=== PATIENT | male | born 1945 | race Caucasian/White ===

== ENCOUNTER 2018-08-26 08:57 | Observation (INO) | payer MEDICARE ==
--- NOTE | 2018-08-26 09:39 | ED ---
HPI Chest Pain - HPI Summary HPI Summary: This patient is a 77 year old M presenting to [facility] with a chief complaint of CP that began yesterday. The patient has been in the hospital on the 4th floor with his who is admitted for her pancreatic cancer. Last night he went home after staying here for a couple days without his medication. He took his meds at home and was driving back when he had chest tightness while driving rated 3/10 and pulled over. He was still having chest discomfort when he returned and was up visiting his . This morning he had another episode of cp and at this point he decided to walk down to the ED. Currently he is having mild left sided neck and shoulder pain. The patient rates the pain 1/10 in severity. The pain is worse with activity and resolves with rest. Patient reports SOB and diaphoresis with mild exertion. Patient denies n/v, LE edema, ABD pain, and GERD. He was seen at the [facility] last week and was told he looked good. He has had a stress test in the last ten years and has not taken any medication since yesterday afternoon when he was home. NKDA. He denies hx of CHF. Pt had an MN in 1988 and has 2 stents placed - History of Current Complaint Chief Complaint: EDChestPainROMI Time Seen by Provider: 08/26/18 09:27 Hx Obtained From: Patient Onset/Duration: Still Present Timing: Constant Initial Severity: Moderate Current Severity: Mild Pain Intensity: 1 Pain Scale Used: 0-10 Numeric Chest Pain Location: Mid Sternal Chest Pain Radiates: Yes Chest Pain Radiates To:: Shoulder, Neck Associated Signs and Symptoms: Positive: Other: - SOB - Allergy/Home Medications Allergies/Adverse Reactions: Allergies Allergy/AdvReac Type Severity Reaction Status Date / Time No Known Allergies Allergy Verified 08/26/18 09:08 PMH/Surg Hx/FS Hx/Imm Hx Endocrine/Hematology History: Reports: Hx Diabetes Cardiovascular History: Reports: Hx Hypertension, Hx Myocardial Infarction Sensory History: Reports: Hx Contacts or Glasses Opthamlomology History: Reports: Hx Contacts or Glasses - Cancer History Cancer Type, Location and Year: PROSTATE - Surgical History Surgery Procedure, Year, and Place: LAD STENT SP MN. SCHRAPNEL IN SPINE AND SHOULDER. MANSI. APPY. TONSILLECTOMY. FACIAL SURGERY X 2. NASAL PASSAGES Infectious Disease History: No Infectious Disease History: Denies: Traveled Outside the [place] in Last 30 Days - Family History Known Family History: Positive: Hypertension - Social History Alcohol Use: None Substance Use Type: Reports: None Hx Tobacco Use: Yes Smoking Status (MU): Former Smoker Review of Systems Positive: Skin Diaphoresis - see hpi Positive: Chest Pain Positive: Shortness Of Breath - see hpi Gastrointestinal: Negative - gerd Negative: Abdominal Pain, Vomiting, Nausea Negative: Edema All Other Systems Reviewed And Are Negative: Yes Physical Exam - Summary Physical Exam Summary: General: well-appearing, no pain distress Skin: warm, color reflects adequate perfusion, dry Head: normal Eyes: EOMI, MELVINA ENT: normal Neck: supple, nontender Respiratory: CTA, breath sounds present Cardiovascular: RRR Abdomen: soft, nontender Bowel: present Musculoskeletal: normal, strength/ROM intact Neurological: sensory/motor intact, A&O x3 Psychological: affect/mood appropriate Triage Information Reviewed: Yes Vital Signs On Initial Exam: Initial Vitals Temp Pulse Resp BP Pulse Ox 98.3 F 87 19 122/75 96 08/26/18 09:05 08/26/18 09:05 08/26/18 09:05 08/26/18 09:05 08/26/18 09:05 Vital Signs Reviewed: Yes Diagnostics - Vital Signs Vital Signs Temp Pulse Resp BP Pulse Ox 08/26/18 09:05 98.3 F 87 19 122/75 96 - Laboratory Result Diagrams: 08/26/18 09:50 08/26/18 09:50 Lab Statement: Any lab studies that have been ordered have been reviewed, and results considered in the medical decision making process. - Radiology CXR Radiology Interpretation Completed By: Radiologist Summary of Radiographic Findings: no active cardiopulmonary disease is noted. ED physician has reviewed this radiology report. - EKG 0917 Cardiac Rate: NL EKG Rhythm: Sinus Rhythm - at [address] Segment: Normal Ectopy: None Chest Pain Course/Dx - Course Course Of Treatment: Admit hospitalist stable - Diagnoses Provider Diagnoses: Chest pain - Provider Notifications Discussed Care Of Patient With: Sonya Barker Time Discussed With Above Provider: 10:30 Instructed by Provider To: Admit As Inpatient Discharge - Sign-Out/Discharge Documenting (check all that apply): Patient Departure - admitted - Discharge Plan Condition: Stable Disposition: ADMITTED TO [facility] Referrals: Madhav Callaway MD [Primary Care Provider] - - Billing Disposition and Condition Condition: STABLE Disposition: Admitted to [facility] - Attestation Statements Document Initiated by Mary: Yes Documenting Scribe: Burak Bravo Provider For Whom Mary is Documenting (Include Credential): Edmund Barrios MD Scribe Attestation: IBurak , scribed for Edmund Barrios MD on 08/26/18 at 1129. Scribe Documentation Reviewed: Yes Provider Attestation: The documentation as recorded by the Burak edouard accurately reflects the service I personally performed and the decisions made by me, Edmund Barrios MD Status of Scribe Document: Viewed
[2018-08-26] MEDS ORDERED: Aspirin 81 mg CHEW TAB* 81 MG TAB.CHEW PO ONE (09:43)
[2018-08-26] MEDS ORDERED: Nitroglycerin TAB 0.4 MG* 0.4 MG TAB SL PRN (09:44)
[2018-08-26] MEDS ORDERED: NS 0.9% 1000 ML* 1,000 ML IV SCH (09:45)
[2018-08-26 10:07] LABS: ABS Basophils 0 10^3/ul (0-0.2); ABS Eosinophils 0.2 10^3/ul (0-0.6); ABS Lymphocytes 1.6 10^3/ul (1.0-4.8); ABS Monocytes 0.7 10^3/ul (0-0.8); ABS Neutrophils 3.3 10^3/ul (1.5-7.7); ABS Nucleated RBC 0 10^3/ul; Eosinophil % 2.7 %; Hematocrit 39 % (42-52); Hemoglobin 13.3 g/dl (14.0-18.0); Lymphocyte % 28.1 %; Mean Corpuscular HGB Conc 35 g/dl (31-36); Mean Corpuscular Hemoglobin 32 pg (27-31); Mean Corpuscular Volume 92 fL (80-94); Mean Platelet Volume 8.3 fL (7.4-10.4); Nucleated Red Blood Cells % 0.1; Platelet Count 177 10^3/ul (150-450); Red Blood Count 4.19 10^6/ul (4.00-5.40); Red Cell Distribution Width 14 % (10.5-15); White Blood Count 5.7 10^3/ul (3.5-10.8)
[2018-08-26 10:14] LABS: Activated Partial Thrombo Time 30.6 seconds (26.0-36.3); INR 0.89 (0.77-1.02)
[2018-08-26 10:24] LABS: Albumin 4.3 g/dL (3.2-5.2); BUN/Creatinine Ratio 12.8 (8-20); Calcium 9.7 mg/dL (8.6-10.3); EGFR Non-African American 78.9 (>60); Globulin 2.2 g/dL (2-4); Magnesium 1.4 mg/dL (1.9-2.7); Potassium 3.9 mmol/L (3.5-5.0); Total Bilirubin 0.5 mg/dL (0.2-1.0); Total Protein 6.5 g/dL (6.4-8.9)
[2018-08-26] MEDS ORDERED: Magnesium Sulfate 2 GM IV* 2 GM/50 ML BAG IVPB ONE ×2 (10:28→12:15)
[2018-08-26] MEDS ORDERED: Magnesium Hydroxide LIQ* 30 ML UDC PO PRN (12:01)
[2018-08-26] MEDS ORDERED: Acetaminophen TAB* 325 MG PO PRN (12:01)
[2018-08-26] MEDS ORDERED: Docusate CAP* 100 MG PO PRN (12:01)
[2018-08-26] MEDS ORDERED: Fluticasone NASAL SPRAY 50MCG* 16 gm SPRAY BTL BOTH NARES PRN (12:10)
[2018-08-26] MEDS ORDERED: Dextrose 50% Syringe 50 ML* 25 GM/50 ML SYRINGE IV PUSH PRN (13:04)
[2018-08-26] MEDS: Heparin VIAL(*) 5000 UNITS/ML VIAL (FIVE THOUSAND) SUBCUT SCH ×2 (13:27→20:49)
[2018-08-26] MEDS: Metoprolol Succinate XL TAB* 25 MG PO SCH (13:27)
[2018-08-26] MEDS: Tamsulosin CAP* 0.4 MG PO SCH (13:27)
--- NOTE | 2018-08-26 15:17 | HP ---
AMENDED REPORT NOW INCLUDES DESIGNATED COSIGNER CC: Dr. Callaway; Dr. Domínguez * HISTORY AND PHYSICAL: DATE OF ADMISSION: 08/26/18 PROVIDER: Maren Rizo NP PRIMARY CARE PROVIDER: Dr. Callaway. CARDIOLOGY PROVIDER: Dr. Domínguez. ATTENDING PHYSICIAN: Dr. Barker * (dictated by Maren Rizo NP). CHIEF COMPLAINT: Chest pain. HISTORY OF PRESENT ILLNESS: Mr. Carlin is a 72-year-old male with a past medical history significant for coronary artery disease, NH in 1988, and 2 stents to the LAD as well as hypertension and diabetes, who experienced sudden onset of substernal chest pain on Sunday while walking in the parking lot. It did resolve with rest. At that time, he did not experience shortness of breath or diaphoresis. He had another episode of similar chest pain later that day while walking in the hallway of this hospital to visit his that again resolved with rest. He had another similar incident yesterday as well as an episode of his heart racing overnight and he decided to come into the ED for further workup. Also of note, the patient has been missed his daily medications since his got admitted to the hospital on . Upon arrival in the ED, the patient's vital signs were stable. His initial 2 troponins were negative and his initial EKG showed no evidence of acute ischemia or infarction. At the time of my exam, the patient denied any chest pain, shortness of breath, or diaphoresis. He also denied any headache, dizziness, nausea, vomiting, diarrhea, abdominal pain, or numbness or tingling in his lower extremities. He denied orthopnea, however, does endorse that he has been getting more short of breath with exertion and sometimes feels his heart is racing with exertion as well. He has no lower extremity edema and denies history of CHF. Also of note, the patient has lost about 30 pounds since December when his was diagnosed with cancer and had increased stress related to that lately and since her admission last week. The hospitalist team was asked to admit this patient for further workup of his chest pain. The patient will undergo a stress test on Sunday morning. PAST MEDICAL HISTORY: Coronary artery disease, NH, status post 2 stents to the LAD; diabetes; BECCA; history of prostate cancer. PAST SURGICAL HISTORY: The patient had some shrapnel in his spine and shoulder removed in the 60s. He has had a cholecystectomy, appendectomy, tonsillectomy, and facial surgery x2. HOME MEDICATIONS: 1. Metformin 500 mg p.o. q.a.m. and 1000 mg q.p.m. 2. Viagra 100 mg p.o. daily p.r.n., which the patient reports not having used. 3. Aspirin 81 mg p.o. b.i.d. 4. Katie 180 mg p.o. daily. 5. Vitamin D 2000 units p.o. daily. 6. Multivitamin 2 tabs p.o. daily. 7. Metoprolol succinate 25 mg p.o. daily. 8. Methylphenidate extended release 40 mg p.o. daily. 9. Lisinopril 40 mg p.o. daily. 10. Flonase 1 spray both nares b.i.d. p.r.n. 11. Flomax 0.4 mg p.o. daily. 12. Crestor 40 mg p.o. daily. 13. Nitroglycerin tabs 0.3 mg sublingual q.5 minutes p.r.n. 14. Niacin 1000 mg p.o. at bedtime. 15. Wellbutrin 300 mg p.o. daily. 16. Loratadine 10 mg p.o. daily. ALLERGIES: The patient has no known allergies. FAMILY HISTORY: The patient does have a family history of coronary artery disease and an abdominal aneurysm in his father. His mother has a history of lung cancer. There is no history of diabetes in his family. SOCIAL HISTORY: The patient is a former smoker, but quit in 1981. The patient denies alcohol use. The patient would like to be full code and his medical decision maker is his , Bina. REVIEW OF SYSTEMS: I performed a 14-point review of systems. All the pertinent positives and negatives are mentioned in the history of present illness. The remaining review of systems are negative. PHYSICAL EXAMINATION GENERAL APPEARANCE: The patient is alert, pleasant, and appears to be in no acute distress. VITAL SIGNS: Temperature 98.9, heart rate 87, respiratory rate 16, O2 sat 96% on room air, blood pressure 143/86. HEENT: Normocephalic, atraumatic. Pupils are equal, round, and reactive to light and accommodation. EOMs are intact. NECK: Supple. No lymphadenopathy noted. No JVD appreciated. RESPIRATORY: No accessory muscle use and the lungs are clear to auscultation. Normal work of breathing. CARDIAC: Regular rate and rhythm. S1 and S2 present. No murmurs, rubs, or gallops heard. ABDOMEN: Soft, nontender, nondistended. There are bowel sounds x4. EXTREMITIES: No lower extremity edema. DP and PT pulses are 2+ and symmetric. MUSCULOSKELETAL: There is no clubbing or cyanosis noted. The patient exhibited 5/5 strength in all 4 extremities. NEUROLOGIC: The patient is alert and oriented x3. PSYCHIATRIC: The patient is calm and cooperative. SKIN: There are no rashes or abnormalities seen. DIAGNOSTIC STUDIES/LAB DATA: White blood cells 5.7, RBC 4.19, hemoglobin 13.3, hematocrit 39, MCV 92, MCH 32, MCHC 35, RDW 14, platelet count 177, MPV 8.3. INR 0.89, PTT 30.6, D-dimer less than 200. Sodium 140, potassium 3.9, chloride 107, carbon dioxide 23, anion gap 10, BUN 12, creatinine 0.94, BUN-creatinine ratio 12.8, glucose 116, lactic acid 1.1, calcium 9.7, magnesium 1.4. Total bili 0.5, AST 24, ALT 20, alk phos 64. Total creatine kinase 94, CK-MB 2.4, troponin 0.01 x2, BNP 38. Total protein 6.5, albumin 4.3, globulin 2.2, albumin -globulin ratio 2. Diagnostics: Chest x-ray with no active cardiopulmonary disease noted. EKG with normal sinus rhythm with rate in the 80s, Q-waves in V1 and V2 representing his old NH. No evidence of ST elevation or T-wave changes. ASSESSMENT: Mr. Carlin is a 72-year-old male with a past medical history significant for coronary artery disease and myocardial infarction, who presented to the ED with episodic substernal chest pain, worse with exertion and resolved with rest, and will be admitted to the hospitalist service for further workup of his chest pain. PLAN: 1. Chest pain in the setting of known coronary artery disease and history of NH . The patient will be admitted to the hospitalist service and monitored on telemetry. His initial 2 troponins and EKGs were negative; however, he will have an additional troponin and EKG. The patient is not currently experiencing any chest pain. He did receive aspirin in the ED. I will continue his home aspirin 81 mg p.o. b.i.d. I will also continue his home metoprolol 25 mg p.o. daily as well as his Crestor. I will order an echo as well as a stress test to be done on Sunday morning. 2. Hypertension. The patient did have systolic blood pressure in the 140s in the ED. I will reorder his home lisinopril. 3. Diabetes. I will hold the patient's metformin and start fingersticks and a lispro sliding scale. 4. BPH. I will continue the patient's Flomax. 5. Depression. I will continue the patient's Wellbutrin. 6. Hypomagnesemia. The patient had a mag of 1.4 in the ED. He received 2 g of mag in the ED and I will give him an additional 2 g and recheck tomorrow. 7. Diet: The patient should have a heart healthy and carb controlled diet. 8. DVT prophylaxis: The patient will have heparin subcu. 9. Code status: The patient is a full code. 10. Disposition: Observation. Anticipate discharge to home when medically stable. TIME SPENT: Time spent for this admission was 60 minutes and 35 minutes were spent with the patient discussing medications, past medical history, and events leading up to his arrival today and performing a physical exam. The case has been reviewed with my attending, Dr. Barker, who agrees with the plan of care. MAREN RIZO, PILAR [id number]/CPS #: [id number] RAYNA
--- NOTE | 2018-08-26 15:44 | ECHO ---
Patient: KEMAR EGAN [facility] Rec#: [id number] : 1945 Date: 08/26/2018 Age: 72y Height: 177.8 cm / 70.0 in Weight: 109.1 kg / 240.5 lbs Sex: M BSA: 2.26 Room#: [facility] Admit Date#: 08/26/2018 Type: Inpatient Referring: PARMINDER RIZO Reading: Rai Deras MD Rehab Assistant: Christine Boles RDCS CC: Madhav Callaway MD Transthoracic Echocardiogram Indication: Chest pain BP: 143/86 HR: 81 Rhythm: NSR Findings History: CAD with OH, stents, HTN, DM, former smoker. Technical Comments: The study quality is fair. Completed at 1415. Left Ventricle: The left ventricular chamber size is normal. There is no left ventricular hypertrophy. There is a focal wall motion abnormality present. There is mildly decreased left ventricular systolic function. The estimated ejection fraction is 40-45%. Abnormal left ventricular diastolic function is observed. Abnormal left ventricular diastolic filling is observed, consistent with impaired relaxation. The mid anteroseptal, and apical lateral wall segments are hypokinetic (score 2). The apical septal, and apical anterior wall segments are akinetic (score 3). Overall wallmotion score index is 1.38 Left Atrium: The left atrium is slightly dilated. Right Ventricle: Moderator Band present. The right ventricular cavity size is normal. The right ventricular global systolic function is normal. Right Atrium: The right atrial cavity size is normal. Aortic Valve: The aortic valve is trileaflet. The aortic valve leaflets are mildly thickened. There is evidence of aortic sclerosis without stenosis. There is no evidence of aortic regurgitation. There is no evidence of aortic stenosis. Mitral Valve: The mitral valve leaflets are mildly thickened. There is trace to mild mitral regurgitation. There is no evidence of mitral stenosis. Tricuspid Valve: The tricuspid valve leaflets are normal. There is trace to mild tricuspid regurgitation. The right ventricular systolic pressure is estimated at 26 mmHg. No pulmonary hypertension is noted. There is no tricuspid stenosis. Pulmonic Valve: The pulmonic valve appears normal. There is a trace pulmonic regurgitation. There is no pulmonic stenosis. Pericardium: There is no significant pericardial effusion. A pericardial fat pad is visualized. Aorta: There is no dilatation of the ascending aorta. There is no dilatation of the aortic arch. There is mild dilatation of the aortic root. Pulmonary Artery: The main pulmonary artery appears normal. Venous: The inferior vena cava appears normal in size. There is a greater than 50% respiratory change in the inferior vena cava dimension. Conclusions There is a focal wall motion abnormality present. There is mildly decreased left ventricular systolic function. The estimated ejection fraction is 40-45%. Abnormal left ventricular diastolic filling is observed, consistent with impaired relaxation. The left atrium is slightly dilated. The aortic valve leaflets are mildly thickened. There is trace to mild mitral regurgitation. There is trace to mild tricuspid regurgitation. There is mild dilatation of the aortic root. Similar to 2011. Measurements Name Value Normal Range RVIDd (AP) 2D 2.6 cm (0.9 - 2.6) RVDdMajor (2D) 3.8 cm (2.2 - 4.4) RAd ISD 4CH 4.8 cm (3.4 - 4.9) RA (A4C)W 4.3 cm (2.9 - 4.6) IVSd (2D) 0.9 cm (0.6 - 1) LVPWd (2D) 1 cm (0.6 - 1) LVIDd (2D) 4.6 cm (3.6 - 5.4) LVIDs (2D) 4 cm - LV FS (2D) 15 % (25 - 45) Aortic Annulus 1.9 cm (1.4 - 2.6) Ao root diameter (2D) 3.8 cm (2.1 - 3.5) Ascending Ao 3.4 cm (2.1 - 3.4) Aortic arch 2.3 cm (1.8 - 3.4) LA dimension (AP) 2D 3.4 cm (2.3 - 3.8) LAd ISD 4CH 5.3 cm (2.9 - 5.3) LA ISD 4CH W 4.7 cm (2.5 - 4.5) Name Value Normal Range LA ESV BP (A/L) index 29 ml/m2 - Name Value Normal Range MV E-wave Vmax 0.7 m/sec - MV deceleration time 162 msec - MV A-wave Vmax 1.2 m/sec - MV E:A ratio 0.6 ratio - LV septal e' Vmax 0.07 m/sec - LV lateral e' Vmax 0.07 m/sec - LV E:e' septal ratio 10 ratio - LV E:e' lateral ratio 10 ratio - Name Value Normal Range AV Vmax 1.5 m/sec - AV VTI 30.6 cm - AV peak gradient 9 mmHg - AV mean gradient 4 mmHg - LVOT Vmax 1 m/sec - LVOT VTI 21 cm - LVOT peak gradient 4 mmHg - LVOT mean gradient 2 mmHg - KHARI Vmax 0.6 m/sec - Name Value Normal Range TR Vmax 2.4 m/sec - TR peak gradient 23 mmHg - RAP 3 mmHg - RVSP 26 mmHg - IVC diameter 2.05 cm - Name Value Normal Range PV Vmax 1.1 m/sec - PV peak gradient 5 mmHg - Wallmotion BAS Normal BA Normal BAL Normal JOSÉ Normal BI Normal BIS Normal MAS Hypokinetic MA Normal MAL Normal MIL Normal OH Normal MIS Normal Akinetic AA Akinetic AL Hypokinetic AI Normal APEX Dyskinetic
[2018-08-26] MEDS: Insulin LISPRO* 1 UNITS UNIT SUBCUT SCH (17:34)
[2018-08-26] MEDS: Aspirin EC TAB* 81 MG TAB.EC PO SCH (20:49)
[2018-08-27] MEDS: Nitroglycerin TAB 0.4 MG* 0.4 MG TAB SL PRN ×2 (00:17→00:27)
[2018-08-27] MEDS ORDERED: Aspirin EC TAB* 325 MG PO ONE (00:35)
[2018-08-27] MEDS ORDERED: Aspirin EC TAB* 325 MG ONE (00:37)
[2018-08-27] MEDS ORDERED: Nitroglycerin 2% OINT* 1 GM PAK ONE (00:37)
[2018-08-27] MEDS: Nitroglycerin 2% OINT* 1 GM PAK TOPICAL SCH ×2 (01:11→07:42)
[2018-08-27] MEDS: Heparin VIAL(*) 5000 UNITS/ML VIAL (FIVE THOUSAND) SUBCUT SCH ×3 (05:37→22:12)
[2018-08-27 05:44] LABS: ABS Basophils 0.1 10^3/ul (0-0.2); ABS Eosinophils 0.2 10^3/ul (0-0.6); ABS Lymphocytes 1.9 10^3/ul (1.0-4.8); ABS Monocytes 0.6 10^3/ul (0-0.8); ABS Nucleated RBC 0 10^3/ul; Eosinophil % 3.5 %; Hematocrit 37 % (42-52); Hemoglobin 12.8 g/dl (14.0-18.0); Lymphocyte % 32.6 %; Mean Corpuscular HGB Conc 34 g/dl (31-36); Mean Corpuscular Hemoglobin 32 pg (27-31); Mean Corpuscular Volume 92 fL (80-94); Mean Platelet Volume 8.3 fL (7.4-10.4); Nucleated Red Blood Cells % 0; Platelet Count 172 10^3/ul (150-450); Red Blood Count 4.04 10^6/ul (4.00-5.40); Red Cell Distribution Width 14 % (10.5-15); White Blood Count 5.7 10^3/ul (3.5-10.8)
[2018-08-27 06:05] LABS: BUN/Creatinine Ratio 12.3 (8-20); Calcium 9.4 mg/dL (8.6-10.3); EGFR Non-African American 63.1 (>60); Potassium 3.8 mmol/L (3.5-5.0)
[2018-08-27] MEDS: Aspirin EC TAB* 81 MG TAB.EC PO SCH ×2 (07:39→20:16)
[2018-08-27] MEDS: Insulin LISPRO* 1 UNITS UNIT SUBCUT SCH ×3 (07:49→17:10)
--- NOTE | 2018-08-27 08:51 | PN ---
Hospitalist Progress Note Date of Service: 08/27/18 called to bedside to eval chest pain. pt says he has chest pain dull type on the anterior chest. got two doses of sl nitro ---> subsided from 5-02/10 to 3-. nitro paste 0.5 inch applied and pt was seen half an hour afterwards ---> still has pain 11/10----> ekg did not reveal any acute change and trop was neg ---> informed pt reg this and asa 325 was given ( changed his asa from 81 mg daily to 325 mg but next dose will be given 08/28. pt will go for stress test tmr )
[2018-08-27] MEDS: Atorvastatin* 80 MG TAB PO SCH (09:06)
[2018-08-27] MEDS: Lisinopril TAB* 10 MG PO SCH (09:06)
[2018-08-27] MEDS: Cholecalciferol TAB* 1000 UNITS PO SCH (09:06)
[2018-08-27] MEDS: Tamsulosin CAP* 0.4 MG PO SCH (09:06)
[2018-08-27] MEDS: Metoprolol Succinate XL TAB* 25 MG PO SCH (09:06)
[2018-08-27] MEDS: BuPROPion XL* 300 MG TAB.XL PO SCH (09:06)
--- NOTE | 2018-08-27 12:14 | PN ---
Subjective Date of Service: 08/27/18 Interval History: Occ mild chest pain or neck pain. Patient not sure if it is cardiac. No cough , SOB. Objective Active Medications: Acetaminophen (Tylenol Tab*) 650 mg PO Q4H PRN PRN Reason: FEVER/PAIN Aspirin (Aspirin Ec Tab*) 81 mg PO BID [facility] Last Admin: 08/27/18 07:39 Dose: Not Given Aspirin (Ecotrin Ec Tab*) 325 mg PO DAILY [facility] Atorvastatin Calcium (Lipitor*) 80 mg PO DAILY [facility] Last Admin: 08/27/18 09:06 Dose: 80 mg Bupropion HCl (Bupropion Xl*) 300 mg PO DAILY [facility] Last Admin: 08/27/18 09:06 Dose: 300 mg Cholecalciferol (Vitamin D Tab*) 2,000 units PO DAILY [facility] Last Admin: 08/27/18 09:06 Dose: 2,000 units Dextrose (D50w Syringe 50 Ml*) 12.5 gm IV PUSH .FOR FS < 60 - SS PRN PRN Reason: FS < 60 Docusate Sodium (Colace Cap*) 100 mg PO BID PRN PRN Reason: CONSTIPATION Fluticasone Propionate (Flonase Nasal [place] 50mcg*) 1 spray BOTH NARES BID PRN PRN Reason: CONGESTION Heparin Sodium (Porcine) (Heparin Vial(*)) 5,000 units SUBCUT Q8HR [facility] Last Admin: 08/27/18 05:37 Dose: 5,000 units Insulin Human Lispro (Humalog*) 0 units SUBCUT AC [facility]; Protocol Last Admin: 08/27/18 12:07 Dose: 1 units Lisinopril (Prinivil Tab*) 40 mg PO DAILY [facility] Last Admin: 08/27/18 09:06 Dose: 40 mg Magnesium Hydroxide (Milk Of Magnesia Liq*) 30 ml PO Q4H PRN PRN Reason: CONSTIPATION Metoprolol Succinate (Toprol Xl Tab*) 25 mg PO DAILY [facility] Last Admin: 08/27/18 09:06 Dose: 25 mg Nitroglycerin (Nitroglycerin Tab 0.4 Mg*) 0.4 mg SL ED ONCE PRN PRN Reason: ANGINA Nitroglycerin (Nitroglycerin Tab 0.4 Mg*) 0.4 mg SL Q5M PRN PRN Reason: CHEST PAIN Last Admin: 08/27/18 00:27 Dose: 0.4 mg Nitroglycerin (Nitroglycerin 2% Oint*) 0.5 inch TOPICAL 0100,0700 INGE; Protocol Last Admin: 08/27/18 07:42 Dose: 0.5 inch Pharmacy Profile Note (Nitro Patch/Oint Remove*) 1 note TOPICAL 1300 INGE Tamsulosin HCl (Flomax Cap*) 0.4 mg PO DAILY [facility] Last Admin: 08/27/18 09:06 Dose: 0.4 mg Vital Signs - 8 hr 08/27/18 08/27/18 08/27/18 07:35 07:42 07:58 Temperature 97.4 F Pulse Rate 71 Respiratory 18 16 Rate Blood Pressure 120/62 (mmHg) O2 Sat by Pulse 93 Oximetry 08/27/18 08/27/18 11:25 11:27 Temperature 97.8 F 98.3 F Pulse Rate 67 62 Respiratory 14 Rate Blood Pressure 111/46 (mmHg) O2 Sat by Pulse 95 94 Oximetry Oxygen Devices in Use Now: None Appearance: Alert, supine in bed. In fair spirits. Looks comfortable. Eyes: No Scleral Icterus Respiratory: Symmetrical Chest Expansion and Respiratory Effort, Clear to Auscultation, Clear to Percussion Cardiovascular: NL Sounds; No Murmurs; No JVD, RRR, No Edema, - Extremities: No Edema, No Clubbing, Cyanosis, - Skin: No Rash or Ulcers, No Nodules or Sclerosis, - Neurological: Alert and Oriented x 3, NL Sensation Result Diagrams: 08/27/18 05:22 08/27/18 05:22 Assess/Plan/Problems-Billing Assessment: - Patient Problems (1) Chest pain Current Visit: Yes Status: Acute Code(s): R07.9 - CHEST PAIN, UNSPECIFIED SNOMED Code(s): 82767531 Comment: Hx ND, stents. Patient did not take his metoprol for several days while his was hospitalized. Stress test 08/28. Note LVEF 40-45% on echo 08/26. Resume niacin, continue statin, ASA. (2) HTN (hypertension) Current Visit: Yes Status: Acute Code(s): I10 - ESSENTIAL (PRIMARY) HYPERTENSION SNOMED Code(s): 99314166 Comment: Continue lisinoprill, metoprolol. (3) Diabetes Current Visit: Yes Status: Acute Code(s): E11.9 - TYPE 2 DIABETES MELLITUS WITHOUT COMPLICATIONS SNOMED Code(s): 07248518 Comment: Metformin on hold. Lispro by SS.
[2018-08-27] MEDS: Nitro Patch/OINT Remove TOPICAL SCH (13:12)
[2018-08-27] MEDS ORDERED: Niacin ER TAB* 500 MG PO SCH (21:00)
[2018-08-28] MEDS: Nitroglycerin 2% OINT* 1 GM PAK TOPICAL SCH ×2 (01:00→11:25)
[2018-08-28] MEDS: Heparin VIAL(*) 5000 UNITS/ML VIAL (FIVE THOUSAND) SUBCUT SCH ×2 (06:07→14:28)
[2018-08-28] MEDS: Insulin LISPRO* 1 UNITS UNIT SUBCUT SCH ×2 (07:29→12:12)
[2018-08-28] MEDS ORDERED: Aspirin EC TAB* 325 MG PO SCH (09:00)
[2018-08-28] MEDS ORDERED: Regadenoson* 0.4 MG/5 ML SYRINGE ONE ×2 (09:45→09:57)
[2018-08-28 11:20] VITALS: BP 112/63
[2018-08-28] MEDS: Aspirin EC TAB* 81 MG TAB.EC PO SCH (11:23)
[2018-08-28] MEDS: Atorvastatin* 80 MG TAB PO SCH (11:23)
[2018-08-28] MEDS: Tamsulosin CAP* 0.4 MG PO SCH (11:23)
[2018-08-28] MEDS: Lisinopril TAB* 10 MG PO SCH (11:23)
[2018-08-28] MEDS: BuPROPion XL* 300 MG TAB.XL PO SCH (11:23)
[2018-08-28] MEDS: Cholecalciferol TAB* 1000 UNITS PO SCH (11:23)
[2018-08-28] MEDS: Nitro Patch/OINT Remove TOPICAL SCH (12:11)
[2018-08-28] MEDS: Metoprolol Succinate XL TAB* 25 MG PO SCH (12:12)
== END 2018-08-28 16:15 | disposition home or self-care (01) ==
LOC: ED 08:57 → MEDTELE 12:01
PROVIDERS: ADMIT Hospitalist; ATTEND Internal Medicine
DX: R07.9 Chest pain, unspecified (principal); I25.10 Atherosclerotic heart disease of native coronary artery without angina pectoris; I25.2 Old myocardial infarction; E11.9 Type 2 diabetes mellitus without complications; Z95.5 Presence of coronary angioplasty implant and graft; G47.33 Obstructive sleep apnea (adult) (pediatric); Z85.46 Personal history of malignant neoplasm of prostate; Z79.82 Long term (current) use of aspirin; I10 Essential (primary) hypertension; F32.9 Major depressive disorder, single episode, unspecified; R06.02 Shortness of breath; Z87.891 Personal history of nicotine dependence
CPT/HCPCS: 36415; 71045; 78452; 80048; 80053; 82550; 82553; 83605; 83735; 83880; 84484; 85025; 85379; 85610; 85730; 93005; 93017; 93306; 96365; 96366; 96372; 99283; A9270-GY; A9502; G0378; J1644; J2785; J3475

== ENCOUNTER 2018-11-05 12:46 | Observation (INO) | payer MEDICARE ==
--- OUTSIDE RECORDS SUMMARY | 2018-11-05 12:57 | XMS REPORT | Continuity of Care Document ---
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 Active Onset: 02/21/2016 Essential hypertension Debra Domínguez M.D. 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 Active granulomas Onset: 06/25/2013 Type 2 diabetes mellitus Debra Domínguez M.D. Active Onset: 06/25/2013 Morbid obesity Debra Domínguez M.D. Active Onset: 06/25/2013 Benign essential hypertension Debra Domínguez M.D. Active Onset: 06/25/2013 Pure hypercholesterolemia Debra Domínguez M.D. Active Onset: 06/25/2013 Dyspnea Debra Domínguez M.D. Active Onset: 06/25/2013 Coronary arteriosclerosis Debra Domínguez M.D. Active Family History Description No Information Available Social History Type Date Description Comments Sex Unknown Marital Status Lives With Alone Occupation Retired ETOH Use Never used alcohol Tobacco Use Start: Unknown End: Patient is a former smoker Unknown Recreational Drug Use Denies Drug Use Smoking Status Reviewed: 11/01/18 Patient is a former smoker Exercise Type/Frequency Does not exercise Allergies, Adverse Reactions, Alerts Date Description Reaction Status Severity Comments 06/25/2013 Seasonal Allergies Active Medications Medication Date Status Form Strength Qnty SIG Indications Ordering Provider Metoprolol Active Tablets ER 50mg 90tab 1/2 po qd Unknown Succinate ER /0000 24HR s Zestril Active Tablets 40mg 30tab 1 po qd Unknown / s Aspirin [address] 81mg One po Unknown / daily. Crestor Active Tablets 40mg 90tab 1 po qd Unknown / s Glucophage Active Tablets 500mg 60tab 1 po tid Unknown / s Multivitamins Active Capsules 30cap 6 capsule Unknown / s daily Flomax Active 0.4mg One po Unknown daily Bupropion HCL SR Active Tablets ER 300mg 180ta one daily Unknown 12HR bs Vitamin D Active Iu Two daily Unknown Cpap Active Device Unknown Claritin Active Capsules 10mg 1 tablet Unknown daily as needed Methylphenidate Active Caps ER 40mg 2 po in the Unknown HCL ER 24HR morning Flonase Allergy Active Suspension 50mcg/Act spray 1 Unknown Relief spray in each nostril twice daily prn Fexofenadine HCL Active Tablets 180mg 1 by mouth Unknown every day Nitroglycerin Active Tablets Sub 0.4mg 1 sl q5mins Unknown x3 as needed for chest pain Krill Oil Active Capsules 500mg take two Unknown Harts-3 capsule/tab let daily by mouth Isosorbide Active Tablets ER 30mg 1 by mouth Unknown Mononitrate ER 0000 24HR every day Vitamin D-400 09/10 Hx Tablets 400Unit 30tab 1 by mouth Debra /2018 s every day Javed Domínguez M.D. 09/09 Suprep Bowel 07/01 Hx Solution 17.5-3.13 1unit take Uche Akers Kit /2018 -1.6GM/17 s according Josh, - 7ML to your MD 09/09 physician's /2019 instruction s the day before your procedure. split the dose as directed. Magnesium 07/01 Hx Solution 1.745GM/3 296ml Two days Uche Balderas 0ML before your Javed Moreno MD 09/09 drink entire bottle after dinner. Niaspan 02/20 Hx Tablets ER 1000mg 90tab take one E78.0 s tablet by [place], - mouth every M.D. 09/10 Slo-Niacin Hx Tablets ER 500mg 2 po daily E78.0 Unknown /0000 - 02/20 Celexa Hx Unknown /0000 - 06/25 Claritin Hx One daily Unknown /0000 or prn - 09/22 Viagra 00 Hx prn Unknown /0000 - 09/09 Sertraline HCL Hx Tablets 100mg 90tab 1 po qd Unknown /0000 s - 02/19 Katie-D 24 Hx Tablets ER 180-240mg 1 by mouth Unknown Hour Allergy & /0000 24HR daily as Congestion - needed for 09/09 allergy symptoms Docusate Sodium 00 Hx Capsules 50mg prn for Unknown /0000 constipatio - n 09/09 Nystatin Hx Cream [id number] topically Unknown /0000 t/GM twice a day - as needed 09/09 Isosorbide 00 Hx Tablets 30mg 1 by mouth Unknown Dinitrate /0000 every day - 11/01 Immunizations Description No Information Available Vital Signs Date Vital Result Comment 11/01/2018 2:42pm Height 68 inches 5'8" Weight 237.00 lb no shoes BP Systolic Sitting 124 mmHg lue reg cuff BP Diastolic Sitting 64 mmHg lue reg cuff BP Systolic Standing 118 mmHg lue reg cuff BP Diastolic Standing 62 mmHg lue reg cuff Respiratory Rate 20 /min BMI (Body Mass Index) 36.0 kg/m2 Ejection Fraction 40-45% echo. 08/26/18 09/10/2018 9:08am Height 68 inches 5'8" Weight 226.00 lb no shoes Heart Rate 64 /min BP Systolic Sitting 124 mmHg lue reg cuff BP Diastolic Sitting 62 mmHg lue reg cuff BP Systolic Standing 122 mmHg lue reg cuff BP Diastolic Standing 62 mmHg lue reg cuff BMI (Body Mass Index) 34.4 kg/m2 Ejection Fraction 40-45% echo.08/26/18 09/26/2016 10:09am Height 68 inches 5'8" Weight 272.00 lb with shoes Heart Rate 72 /min BP Systolic Sitting 116 mmHg LA lrg cuff BP Diastolic Sitting 68 mmHg LA lrg cuff BP Systolic Standing 118 mmHg LA lrg cuff BP Diastolic Standing 70 mmHg LA lrg cuff BMI (Body Mass Index) 41.4 kg/m2 Ejection Fraction 45% - 50% echo 04/15/13 02/21/2016 1:14pm Height 68 inches 5'8" Weight 270.00 lb no shoes Heart Rate 82 /min BP Systolic Sitting 134 mmHg LRG cuff LA BP Diastolic Sitting 76 mmHg LRG cuff LA BP Systolic Standing 126 mmHg LRG cuff LA BP Diastolic Standing 70 mmHg LRG cuff LA Respiratory Rate 19 /min BMI (Body Mass Index) 41.0 kg/m2 Ejection Fraction 45-50% 04/15/13 01/20/2015 2:25pm Height 68 inches 5'8" Weight 279.00 lb Heart Rate 72 /min reg BP Systolic Sitting 138 mmHg LA, reg cuf f BP Diastolic Sitting 78 mmHg LA, reg cuf f BP Systolic Standing 134 mmHg LA BP Diastolic Standing 76 mmHg LA Respiratory Rate 18 /min BMI (Body Mass Index) 42.4 kg/m2 Ejection Fraction 45-50% 04/15/13 07/06/2014 11:37am Height 68 inches 5'8" Weight 283.00 lb Heart Rate 76 /min BP Systolic Sitting 108 mmHg LA lg cuff BP Diastolic Sitting 66 mmHg LA lg cuff BP Systolic Standing 102 mmHg BP Diastolic Standing 60 mmHg Respiratory Rate 18 /min BMI (Body Mass Index) 43.0 kg/m2 06/25/2013 9:12am Height 68 inches 5'8" Weight 290.00 lb with lite shoes, down 4 lbs from 2010 Heart Rate 92 /min regular BP Systolic Sitting 104 mmHg Ra, large cuff BP Diastolic Sitting 60 mmHg Ra, large cuff BP Systolic Standing 100 mmHg Ra, large cuff BP Diastolic Standing 60 mmHg Ra, large cuff Respiratory Rate 16 /min BMI (Body Mass Index) 44.1 kg/m2 Results Test Date Facility Test Result H/L Range Note Laboratory test 11/01/2018 [facility] Troponin-I 0.00 ng/mL < 0.[address] (TnI) [place] [address] [phone] Lipid Panel - JFM 11/01/2018 [facility] Creatine 82 U/L N 10- [address] Kinase(CK) [place] [address] [phone] Comp Metabolic 11/01/2018 [facility] Sodium 140 mmol/L N 135- [address] [place] [address] [phone] Potassium 4.7 mmol/L N 3.5-5.0 Chloride 107 mmol/L N 101-111 Co2 Carbon Dioxide 27 mmol/L N 22-32 Anion Gap 6 mmol/L N 2-11 Glucose 101 mg/dL High 70-100 Blood Urea Nitrogen 17 mg/dL N 6-24 Creatinine 1.12 mg/dL N 0.67-1.17 BUN/Creatinine Ratio 15.2 N 8-20 Calcium 9.6 mg/dL N 8.6-10.3 Total Protein 6.3 g/dL Low 6.4-8.9 Albumin 4.3 g/dL N 3.2-5.2 Globulin 2.0 g/dL N 2-4 Albumin/Globulin Ratio 2.2 N 1-3 Total Bilirubin 0.40 mg/dL N 0.2-1.0 Alkaline Phosphatase 68 U/L N 34-104 Alt 23 U/L N 7-52 Ast 22 U/L N 13-39 Egfr Non- 64.3 >60 Egfr 77.8 >60 2 Lipid Profile 11/01/2018 [facility] Triglycerides 172 mg/dL 3 (Trig/Chol/HDL) [address] [place] [address] [phone] Cholesterol 101 mg/dL 4 HDL Cholesterol 31.7 mg/dL 5 LDL Cholesterol 35 mg/dL 6 Laboratory Studies 08/28/2018 N2N/CCD Import Poc Glucose 184 mg/dL High 70-100 (mg/dL) Laboratory Studies 08/28/2018 N2N/CCD Import Troponin I 0.00 ng/mL Laboratory Studies 08/27/2018 N2N/CCD Import Absolute 0.1 10^3/ul 0-0.2 Basophils (auto) Absolute Eosinophils (auto) 0.2 10^3/ul 0-0.6 Absolute Lymphocytes (auto) 1.9 10^3/ul 1.0-4.8 Absolute Monocytes (auto) 0.6 10^3/ul 0-0.8 Absolute Neutrophils (auto) 3.0 10^3/ul 1.5-7.7 Anion Gap 8 mmol/L 2-11 BUN/Creatinine Ratio 12.3 8-20 Basophils (%) (Auto) 1.0 % Blood Urea Nitrogen 14 mg/dL 6-24 Calcium Level 9.4 mg/dL 8.6-10.3 Carbon Dioxide Level 24 mmol/L 22-32 Chloride Level 106 mmol/L 101-111 Creatinine 1.14 mg/dL 0.67-1.17 Eosinophils (%) (Auto) 3.5 % Estimated GFR () 76.4 Estimated GFR (Non- 63.1 Glucose Level 105 mg/dL High 70-100 Hematocrit 37 % Low 42-52 Hemoglobin 12.8 g/dL Low 14.0-18.0 Lymphocytes (%) (Auto) 32.6 % Mean Corpuscular Hemoglobin 32 pg High 27-31 Mean Corpuscular Hemoglobin Concent 34 g/dL 31-36 Mean Corpuscular Volume 92 fL 80-94 Mean Platelet Volume 8.3 fL 7.4-10.4 Monocytes (%) (Auto) 10.2 % Neutrophils (%) (Auto) 52.7 % Nucleated RBC Absolute Count (auto) 0 10^3/ul Nucleated Red Blood Cells % 0 Platelet Count 172 10^3/ul 150-450 Potassium Level 3.8 mmol/L 3.5-5.0 Red Blood Count 4.04 10^6/ul 4.00-5.40 Red Cell Distribution Width 14 % 10.5-15 Sodium Level 138 mmol/L 135-145 White Blood Count 5.7 10^3/ul 3.5-10.8 Laboratory 08/26/2018 N2N/CCD Import Activated Partial 30.6 seconds 26.0 -36.3 Studies Thromboplast Time Alanine Aminotransferase (Alt/SGPT) 20 U/L 7-52 Albumin 4.3 g/dL 3.2-5.2 Albumin/Globulin Ratio 2.0 1-3 Alkaline Phosphatase 64 U/L 34-104 Aspartate Amino Transf (Ast/Sgot) 24 U/L 13-39 B-Type Natriuretic Peptide 38 pg/mL Creatine Kinase MB 2.4 ng/mL 0.6-6.3 Globulin 2.2 g/dL 2-4 International Ratio (Anticoag Ther) 0.89 0.77-1.02 Lactic Acid Level 1.1 mmol/L 0.5-2.0 Magnesium Level 1.4 mg/dL Low 1.9-2.7 Total Bilirubin 0.50 mg/dL 0.2-1.0 Total Creatine Kinase 94 U/L 10-223 Total Protein 6.5 g/dL 6.4-8.9 Laboratory test 08/13/2018 [facility] Surgical SEE RESULT [address] [place] [address] [phone] Laboratory test 08/13/2018 [facility] Point of Care 114 mg/dL High 70-10 [address] Glucose 0 [place] [address] [phone] 1 Troponin-I testing on Plasma Separator Tubes (PST) has a known false positive rate of 0.20-0.40%. All positive troponins reflex immediate secondary confirmatory testing. 2 Because ethnic data is not always readily available, this report includes an eGFR for both -Americans and non- Americans. The National Kidney Disease Education Program (NKDEP) does not endorse the use of the MDRD equation for patients that are not between the ages of 18 and 70, are , have extremes of body size, muscle mass, or nutritional status, or are non- or non-. According to the National Kidney Foundation, irrespective of diagnosis, the stage of the disease is based on the level of kidney function: Stage Description GFR(mL/min/1.73 m(2)) 1 Kidney damage with normal or decreased GFR 90 2 Kidney damage with mild decrease in GFR 60-89 3 Moderate decrease in GFR 30-59 4 Severe decrease in GFR 15-29 5 Kidney failure <15 (or dialysis) 3 Desirable: <150 Borderline High: 150-199 High: 200-499 Very High: >500 4 Desirable: <200 Borderline High: 200-239 High: >239 5 Low: <40 Desirable: 40-60 High: >60 6 Desirable: <100 Near Optimal: 100-129 Borderline High: 130-159 High: 160-189 Very High: >189 7 SEE RESULT BELOW Name: KEMAR CARLIN : [address]: Uche Moreno MD Acct: [id number] Unit: [id number] AGE: 72 Location: ENDO Re08/13/18 SEX: M Status: DEP REF SPEC: [id number] ROB: 08/13/18-[address] [facility] [address]: Uche Moreno MD REQ: [id number] RECD: 08/13/18-1995 STATUS: PABLITO EASON DR: Ting Callaway MD _ ORDERED: LEVEL 4/4 FINAL DIAGNOSIS 1. Colon, midright, biopsy: -- Tubular adenoma. -- No high grade dysplasia or malignancy. 2. Colon, ileocecal polyp, biopsy: -- Tubular adenoma. -- No high grade dysplasia or malignancy. 3. Colon, rectum at 6 cm, biopsy: -- Changes suggestive of radiation fibrosis. -- No adenomatous change or neoplasia identified. 4. Colon, rectum at 8 cm, biopsy: -- Changes suggestive of radiation fibrosis with residual marked architectural change and lamina propria muciphages.. -- No adenomatous change or neoplasia identified. CLINICAL HISTORY Follow up polyps; history prostate POST-OPERATIVE DIAGNOSIS Colonoscopy: to cecum; tight circled complex; sigmoid loops; papillated even in rectum; conclusions: diverticulosis gray left tight; polyps; radiation change CONTINUED ON NEXT PAGE DEPARTMENT OF PATHOLOGY, [address] [place] [address] Kevin Segura M.D. Director [facility] # [id number] RUN DATE: 08/14/18 [facility] LAB LIVE PAGE 2 Patient: KEMAR CARLIN [id number] (Continued) GROSS DESCRIPTION (Continued) GROSS DESCRIPTION 1. The specimen is received in formalin labeled, Biopsy Mid Right Colon Polyp, and consists of a 0.4 x 0.2 by up to 0.2 cm hernandez polypoid soft tissue fragment which is submitted entirely in one cassette. 2. The specimen is received in formalin labeled, Biopsy Ileocecal Polyp, and consists of a 0.5 x 0.3 x 0.2 cm hernandez-pink polypoid soft tissue fragment which is inked, bisected and submitted entirely in one cassette. 3. The specimen is received in formalin labeled, Biopsy Rectum at 6 cm, and consists of two hernandez-pink irregular soft tissue fragments measuring 0.4 x 0.3 x 0.2 cm and 0.5 x 0.2 x 0.1 cm which are submitted entirely in one cassette. 4. The specimen is received in formalin labeled, Biopsy Rectum at 8 cm, and consists of two hernandez-pink irregular soft tissue fragments averaging 0.3 x 0.3 x 0.2 cm which are submitted entirely in one cassette. Signed by and Reported on: Kevin Segura MD 08/20 1554 END OF REPORT DEPARTMENT OF PATHOLOGY, [address] [place] [address] Kevin Segura M.D. Director [facility] # [id number] 8 Plush Finisher: [id number] Procedures Date Code Description Status 11/01/2018 27294 EKG Tracing & Interpretation Completed 09/10/2018 79348 EKG Tracing & Interpretation Completed 08/28/2018 00321 Treadmill Interp/Report Only Completed 08/28/2018 63310 Stress Test Supervsn W/Out I/R Completed 08/28/2018 39021 EKG, Interpretation Only Completed 08/27/2018 22167 EKG, Interpretation Only Completed 08/26/2018 11029 ECHO Transthorasic Realtime 2D W Doppler & Color Flow Completed Hosp 08/26/2018 18824 EKG, Interpretation Only Completed 08/26/2018 82888 EKG, Interpretation Only Completed 08/13/2018 18509 Colonoscopy Flexible W/Biopsy Completed 08/13/2018 [id number] Colonoscopy Completed 02/21/2016 23314 EKG Tracing & Interpretation Completed 07/03/2013 95848 Stress Test Completed 06/25/2013 03108 EKG Tracing & Interpretation Completed 04/15/2013 26191 ECHO Transthoracic, Real-Time 2D With Doppler And Color Completed Flow 06/14/2005 [id number] Colonoscopy Completed Encounters Type Date Location Provider Dx Diagnosis Office Visit 09/10/2018 [facility] Debra Domínguez I25.119 [facility] 9:00a [facility] M.D. disease of [place] cor art w unsp ang pctrs I10 Essential (primary) hypertension E11.8 Type 2 diabetes mellitus with unspecified complications E78.00 Pure hypercholesterolemia, unspecified E66.9 Obesity, unspecified D64.9 Anemia, unspecified Office Visit 08/28/2018 8:43p [facility] Miguelito I25.10 [facility] Vera M.D. disease of Hospitalists [place] coronary artery w/o ang pctrs I10 Essential (primary) hypertension E11.9 Type 2 diabetes mellitus without complications Office Visit 08/26/2018 [facility] Maren R07.9 Chest pain, 9:22a Assoc,valerie Morfin NP unspecified Hospitalists I50.20 Unspecified systolic (congestive) heart failure I11.0 Hypertensive heart disease with heart failure E11.9 Type 2 diabetes mellitus without complications E83.42 Hypomagnesemia Office Visit 09/26/2016 10:30a [facility] DANAY Michelle I25.10 [facility] disease of [place] coronary artery w/o ang pctrs I10 Essential (primary) hypertension E11.8 Type 2 diabetes mellitus with unspecified complications Office Visit 02/21/2016 1:30p [facility] Debra Domínguez, I25.10 [facility] Zulay disease of [place] coronary artery w/o ang pctrs I10 Essential (primary) hypertension E78.0 Pure hypercholesterolemia E11.8 Type 2 diabetes mellitus with unspecified complications Z68.41 Body mass index (BMI) 40.0-44.9, adult Office Visit 01/20/2015 [place] Debra Domínguez, 414.01 Coronary 2:00p Cardiology Nazario Biswas Atherosclerosis [facility] Telida 401.1 Hypertension Benign 272.0 Hypercholesterolemia Pure 250.00 Diabetes Mellitus W/O Compl Type II Or Unspec Controlled 278.01 Obesity Morbid 786.05 Shortness Of Breath Office Visit 07/06/2014 Anthony Domínguze, 414.01 Coronary 11:15a Cardiology Nazario Biswas Atherosclerosis [facility] Telida 401.1 Hypertension Benign 272.0 Hypercholesterolemia Pure 250.00 Diabetes Mellitus W/O Compl Type II Or Unspec Controlled Office Visit 06/25/2013 [place] Debra Domínguez, 414.01 Coronary 8:45a Cardiology Zulay Atherosclerosis [facility] Telida 786.05 Shortness Of Breath 272.0 Hypercholesterolemia Pure 401.1 Hypertension Benign 278.01 Obesity Morbid 250.00 Diabetes Mellitus W/O Compl Type II Or Unspec Controlled 425.9 Cardiomyopathy Secondary Unspecified Plan of Treatment Future Appointment(s):11/12/2018 10:00 am - Marta Chapa, N.P. at [facility]11/05/2018 11:00 am - Debra Domínguez M.D. at [facility]11/01/2018 - Marta Chapa, N.P.I25.119 Atherosclerotic heart disease of [place] coronary artery withNew Orders:Stress Test, Exercise Nuclear, Scheduled: 11/05/18Follow up:2 week OV LS or day I am office with herRecommendations: Continue Imdur for now.I10 Essential (primary) hypertensionComments:BP controlled.E78.00 Pure hypercholesterolemia, unspecifiedRecommendations:Please have fasting labs.E11.8 Type 2 diabetes mellitus with unspecified skenbgnlymalwI42.9 Chest pain, unspecified
--- OUTSIDE RECORDS SUMMARY | 2018-11-05 12:57 | XMS REPORT | Continuity of Care Document ---
:1945 External Reference #:[id number] Author Name Amber Amaya Care Team Providers Name Role Phone Madhav Callaway MD Primary Care Physician Unavailable Payers Date Identification Numbers Payment Provider Subscriber Effective: 2012 Policy Number: [id number] Medicare Blue Ppo Kemar Carlin Group Number: [id number] [address] [address] PayID: [id number] JimenezADWOA gregory [id number] Advance Directives Description No Information Available Problems Date Description Provider Status Onset: 09/10/2018 Atherosclerotic heart disease of [place] Debra Domínguez M.D. Active coronary artery with [...] Multivitamins Active Capsules 30cap 6 capsule Unknown s daily Flomax Active 0.4mg One po [...] Oil Active Capsules 500mg take two Unknown [place]-3 capsule/tab let daily by mouth Isosorbide Active Tablets ER 30mg 1 by mouth Unknown Mononitrate ER 0000 24HR every day Vitamin D-400 09/10 Hx Tablets 400Unit 30tab 1 by mouth Debra /2018 s every day Javed Domínguez M.D. 09/09 Suprep Bowel 07/01 Hx Solution 17.5-3.13 1unit take Uche Akers Kit /2017 -1.6GM/17 s according Josh, - 7ML to your MD 09/09 physician's /2019 instruction s the day before your procedure. split the dose as directed. Magnesium 07/01 Hx Solution 1.745GM/3 296ml Two days Uche Balderas Citrate 0ML before your Javed Moreno MD 09/09 drink entire bottle after dinner. Niaspan 02/20 Hx Tablets ER 1000mg 90tab take one E78.0 s tablet by [place], - mouth every M.D. 09/10 Slo-Niacin Hx Tablets ER 500mg 2 po daily E78.0 Unknown /0000 - 02/20 Celexa Hx Unknown /0000 - 06/25 Claritin Hx One daily Unknown /0000 or prn - 09/22 Viagra Hx prn Unknown /0000 - 09/09 Sertraline HCL Hx Tablets 100mg 90tab 1 po qd Unknown /0000 s - 02/19 Katie-D 24 Hx Tablets ER 180-240mg 1 by mouth Unknown Hour Allergy & /0000 24HR daily as Congestion - needed for 09/09 allergy symptoms Docusate Sodium 00 Hx Capsules 50mg prn for Unknown /0000 constipatio - n 09/09 Nystatin Hx Cream [id number] topically Unknown /0000 t/GM twice a day [...] Facility Test Result H/L Range Note Laboratory 08/28/2018 N2N/CCD Import Poc Glucose 184 mg/dL High 70-100 Studies (mg/dL) Laboratory 08/28/2018 N2N/CCD Import Troponin I 0.00 ng/mL Studies Laboratory 08/27/2018 N2N/CCD Import Absolute 0.1 10^3/ul 0-0.2 Studies Basophils (auto) Absolute Eosinophils (auto) 0.2 10^3/ul [...] Protein 6.5 g/dL 6.4-8.9 Laboratory test 08/13/2018 [facility] Surgical SEE RESULT [address] [place] [address] [phone] Laboratory test 08/13/2018 [facility] Point of Care 114 mg/dL High 70-10 [address] Glucose 0 [place] [address] [phone] 1 SEE RESULT BELOW Name: KEMAR CARLIN : [address]: Uche Moreno MD Acct: [id number] Unit: [id number] AGE: 72 Location: ENDO Re08/13/18 SEX: M Status: DEP REF SPEC: [id number] ROB: 08/13/18-1110 [facility] DR: Uche Moreno MD REQ: [id number] RECD: 08/13/18 STATUS: PABLITO EASON DR: Ting Callaway MD [...] CONTINUED ON NEXT PAGE DEPARTMENT OF PATHOLOGY, [address] [place] [address] Kevin Segura M.D. Director [facility] # [id number] RUN DATE: 08/14/18 [facility] LAB LIVE PAGE 2 Patient: KEMAR CARLIN [id number] (Continued) GROSS DESCRIPTION (Continued) GROSS DESCRIPTION 1. [...] 1554 END OF REPORT DEPARTMENT OF PATHOLOGY, [address] [place] [address] Kevin Segura M.D. Director [facility] # [id number] 2 Log Clerk: [id number] Procedures Date Code Description Status 11/01/2018 91322 EKG Tracing & Interpretation Completed 09/10/2018 09215 EKG Tracing & Interpretation Completed 08/28/2018 39511 Treadmill Interp/Report Only Completed 08/28/2018 57558 Stress Test Supervsn W/Out I/R Completed 08/28/2018 22128 EKG, Interpretation Only Completed 08/27/2018 41228 EKG, Interpretation Only Completed 08/26/2018 95904 ECHO Transthorasic Realtime 2D W Doppler & Color Flow Completed Hosp 08/26/2018 18353 EKG, Interpretation Only Completed 08/26/2018 29691 EKG, Interpretation Only Completed 08/13/2018 63210 Colonoscopy Flexible W/Biopsy Completed 08/13/2018 98010518 Colonoscopy Completed 02/21/2016 63478 EKG Tracing & Interpretation Completed 07/03/2013 91929 Stress Test Completed 06/25/2013 44359 EKG Tracing & Interpretation Completed 04/15/2013 70067 ECHO Transthoracic, Real-Time 2D With Doppler And Color Completed Flow 06/14/2005 55649101 Colonoscopy Completed Encounters Type Date Location Provider Dx Diagnosis Office Visit 09/10/2018 [facility] Debra Domínguez, I25.119 [facility] heart 9:00a Of [place] disease of [place] cor art w unsp ang pctrs I10 Essential (primary) hypertension E11.8 Type 2 diabetes mellitus with unspecified complications E78.00 Pure hypercholesterolemia, unspecified E66.9 Obesity, unspecified D64.9 Anemia, unspecified Office Visit 08/28/2018 8:43p [facility] Miugelito I25.10 [facility]oc,valerie Vera M.D. disease of Hospitalists [place] coronary artery w/o ang pctrs I10 Essential (primary) hypertension E11.9 Type 2 diabetes mellitus without complications Office Visit 08/26/2018 [facility] Maren R07.9 Chest pain, 9:22a Assoc,valerie Morfin NP unspecified Hospitalists I50.20 Unspecified systolic (congestive) heart failure I11.0 Hypertensive heart disease with heart failure E11.9 Type 2 diabetes mellitus without complications E83.42 Hypomagnesemia Office Visit 09/26/2016 10:30a [facility] DANAY Michelle I25.10 [facility] disease of [place] coronary artery w/o ang pctrs I10 Essential (primary) hypertension E11.8 Type 2 diabetes mellitus with unspecified complications Office Visit 02/21/2016 1:30p [facility] Debra Domínguez, I25.10 [facility] heart [facility] M.D. disease of [place] coronary artery w/o ang pctrs I10 Essential (primary) hypertension E78.0 Pure hypercholesterolemia E11.8 Type 2 diabetes mellitus with unspecified complications Z68.41 Body mass index (BMI) 40.0-44.9, adult Office Visit 01/20/2015 [facility] Debra Domínguez, 414.01 Coronary 2[facility] 401.1 Hypertension Benign 272.0 Hypercholesterolemia Pure 250.00 Diabetes Mellitus W/O Compl Type II Or Unspec Controlled 278.01 Obesity Morbid 786.05 Shortness Of Breath Office Visit 07/06/2014 [facility] Debra Domínguez 414.01 Coronary 11:15a [facility] [place] Atherosclerosis [facility] 401.1 Hypertension Benign 272.0 Hypercholesterolemia Pure 250.00 Diabetes Mellitus W/O Compl Type II Or Unspec Controlled Office Visit 06/25/2013 [facility] Debra Domínguez, 414.01 Coronary 8:45a [facility] [place] Atherosclerosis [facility] 786.05 Shortness Of Breath 272.0 Hypercholesterolemia Pure 401.1 Hypertension Benign 278.01 Obesity Morbid 250.00 Diabetes Mellitus W/O Compl Type II Or Unspec Controlled 425.9 Cardiomyopathy Secondary Unspecified Plan of Treatment Future Appointment(s):11/12/2018 10:00 am - Marta Chapa, N.[place] at [facility]11/05/2018 11:00 am - Debra Domínguez M.D. at [facility]11/01/2018 - Marta Chapa N.P.I25.119 Atherosclerotic heart disease of [place] coronary artery withNew Orders:Stress Test, Exercise Nuclear, Scheduled: 11/05/18Follow up:2 week OV LS or day I am office with herRecommendations: Continue Imdur for now.I10 Essential (primary) hypertensionComments:BP controlled.E78.00 Pure hypercholesterolemia, unspecifiedRecommendations:Please have fasting labs.E11.8 Type 2 diabetes mellitus with unspecified [id number] Chest pain, unspecified
--- NOTE | 2018-11-05 13:05 | ED ---
HPI Chest Pain - HPI Summary HPI Summary: A 73 y/o male brought in by [facility] ambulance presents to [facility] with a chief complaint of chest pain since 10/28/18. The patient reports that on 10/28/18 he was in [place], experienced chest pain and went to the ED on 10/29/18. He had a stress test done at Dr. Garcia office on 11/05/18 and got pale, diaphoretic , had shortness of breath and was hypotensive so he laid down. When he laid down his chest pain worsened. Per EMS the patient initially rated his pain as a 9/10 in severity and describes his pain as a burning sensation. His EKG was concerning during the stress test but EMS reports that his EKG improved in the ambulance. Now he feels better and rates his pain as a 1/10 in severity. He was given Metoprolol and NTG en route. - History of Current Complaint Hx Obtained From: Patient, EMS Onset/Duration: Started Days Ago, Still Present Timing: Constant, Lasting Days Initial Severity: Severe Current Severity: Mild Pain Intensity: 1 Pain Scale Used: 0-10 Numeric Chest Pain Location: Diffuse Chest Pain Radiates: No Character: Burning Aggravating Factor(s): Nothing Alleviating Factor(s): Nothing Associated Signs and Symptoms: Positive: Shortness of Breath, Diaphoresis - Allergy/Home Medications Allergies/Adverse Reactions: Allergies Allergy/AdvReac Type Severity Reaction Status Date / Time No Known Allergies Allergy Verified 08/26/18 09:08 Home Medications: Home Medications Aspirin EC TAB* [Ecotrin EC Low Dose 81 MG*] 162 mg PO DAILY 11/05/18 [History Confirmed 11/05/18] Krill Oil 500 mg PO DAILY 11/05/18 [History Confirmed 11/05/18] LoraTADine TAB(NF) [Claritin 10 MG TAB(NF)] 10 mg PO DAILY 11/05/18 [History Confirmed 11/05/18] Methylphenidate HCl [Concerta] 36 mg PO DAILY 11/05/18 [History Confirmed ] Methylphenidate TAB* [Ritalin TAB*] 40 mg PO DAILY 11/05/18 [History Confirmed 11/05/18] Metoprolol Succinate XL TAB* [Toprol XL TAB*] 25 mg PO DAILY 11/05/18 [History Confirmed 11/05/18] Metronidazole (TOPICAL)(NF) [Metrocream (NF)] 0.75 % TOPICAL BID 11/05/18 [ History Confirmed 11/05/18] Niacin ER TAB* [Niaspan ER TAB*] 1,000 mg PO DAILY 11/05/18 [History Confirmed 11/05/18] Rosuvastatin (NF) [Crestor (NF)] 40 mg PO DAILY 11/05/18 [History Confirmed 01/19] Sildenafil (NF) [Viagra (NF)] 100 mg PO DAILY PRN 11/05/18 [History Confirmed ] Tacrolimus 0.1% OINT (NF) 1 applic TOPICAL DAILY 11/05/18 [History Confirmed 01/19] metFORMIN* [Glucophage 1000 MG TAB *] 1,000 mg PO QPM 11/05/18 [History Confirmed 11/05/18] metFORMIN* [Glucophage 500 MG TAB *] 500 mg PO QAM 11/05/18 [History Confirmed 11/05/18] PMH/Surg Hx/FS Hx/Imm Hx Endocrine/Hematology History: Reports: Hx Diabetes Cardiovascular History: Reports: Hx Angina, Hx Coronary Artery Disease, Hx Hypercholesterolemia, Hx Hypertension, Hx Myocardial Infarction Respiratory History: Denies: Hx Asthma, Hx Chronic Obstructive Pulmonary Disease (COPD), Hx Pneumonia GI History: Reports: Hx Gall Bladder Disease Denies: Hx Gastroesophageal Reflux Disease History: Reports: Hx Benign Prostatic Hyperplasia Sensory History: Reports: Hx Contacts or Glasses, Hx Hearing Aid Opthamlomology History: Reports: Hx Contacts or Glasses Neurological History: Denies: Hx Headaches, Hx Migraine, Hx Seizures, Hx Spinal Cord Injury, Hx Transient Ischemic Attacks (TIA) - Cancer History Cancer Type, Location and Year: PROSTATE - Surgical History Surgery Procedure, Year, and Place: LAD STENT SP HI. SCHRAPNEL IN SPINE AND SHOULDER. MANSI. APPY. TONSILLECTOMY. FACIAL SURGERY X 2. NASAL PASSAGES Infectious Disease History: No Infectious Disease History: Denies: Traveled Outside the [place] in Last 30 Days - Family History Known Family History: Positive: Hypertension - Social History Alcohol Use: None Substance Use Type: Reports: None Hx Tobacco Use: Yes Smoking Status (MU): Former Smoker Review of Systems Positive: Skin Diaphoresis. Negative: Fever Positive: Chest Pain Positive: Shortness Of Breath All Other Systems Reviewed And Are Negative: Yes Physical Exam - Summary Physical Exam Summary: Appearance: The patient is well-nourished in no acute distress and in no acute pain. Skin: The skin is warm and dry and skin color reflects adequate perfusion. HEENT: The head is normocephalic and atraumatic. The pupils are equal and reactive. The conjunctivae are clear and without drainage. Nares are patent and without drainage. Mouth reveals moist mucous membranes and the throat is without erythema and exudate. The external ears are intact. The ear canals are patent and without drainage. The tympanic membranes are intact. Neck: The neck is supple with full range of motion and non-tender. There are no carotid bruits. There is no neck vein distension. Respiratory: Chest is non-tender. Lungs are clear to auscultation and breath sounds are symmetrical and equal. Cardiovascular: Heart is regular rate and rhythm. There is no murmur or rub auscultated. There is no peripheral edema and pulses are symmetrical and equal. Abdomen: The abdomen is soft and non-tender. There are normal bowel sounds heard in all four quadrants and there is no organomegaly palpated. Musculoskeletal: There is no back tenderness noted. Extremities are non-tender with full range of motion. There is good capillary refill. There is no peripheral edema or calf tenderness elicited. Neurological: Patient is alert and oriented to person, place and time. The patient has symmetrical motor strength in all four extremities. Cranial nerves are grossly intact. Deep tendon reflexes are symmetrical and equal in all four extremities. Psychiatric: The patient has an appropriate affect and does not exhibit any anxiety or depression. Triage Information Reviewed: Yes Vital Signs On Initial Exam: Initial Vitals Temp Pulse Resp BP Pulse Ox 97.2 F 77 16 130/80 98 11/05/18 12:52 11/05/18 12:52 11/05/18 12:52 11/05/18 12:52 11/05/18 12:52 Vital Signs Reviewed: Yes Diagnostics - Vital Signs Vital Signs Temp Pulse Resp BP Pulse Ox 11/05/18 12:52 97.2 F 77 16 130/80 98 - Laboratory Result Diagrams: 11/05/18 17:10 11/05/18 13:11 Lab Statement: Any lab studies that have been ordered have been reviewed, and results considered in the medical decision making process. - Radiology CXR Radiology Interpretation Completed By: Radiologist Summary of Radiographic Findings: NO ACTIVE CARDIOPULMONARY DISEASE IS NOTED. ED physician has reviewed this imaging report. - EKG 13:12 Cardiac Rate: NL - 71 bpm EKG Rhythm: Sinus Rhythm ST Segment: Normal Ectopy: None Summary of EKG Findings: Normal sinus rhythm, normal ST, no ectopy, no STEMI. Chest Pain Course/Dx - Course Course Of Treatment: Mr. Carlin had an episode of chest pain while undergoing stress test with Dr. Domínguez today. He dropped his blood pressure and had EKG changes. He was given metoprolol and nitroglycerin, the test was aborted and he was transferred to the emergency department by EMS. He was asymptomatic upon arrival to the emergency department. Dr. Tavares was consult and came to the emergency department to evaluate him and recommended immediate catheterization. The patient remained nontoxic in appearance with stable vital signs here in the ED. - Diagnoses Provider Diagnoses: Unstable angina - Provider Notifications Discussed Care Of Patient With: Victoriano Tavares Time Discussed With Above Provider: 13:25 Instructed by Provider To: Admit As Inpatient - Critical Care Time Critical Care Time: 30-74 min Discharge - Sign-Out/Discharge Documenting (check all that apply): Patient Departure - admit Patient Received Moderate/Deep Sedation with Procedure: No - Discharge Plan Condition: Fair Disposition: ADMITTED TO [facility] - Billing Disposition and Condition Condition: FAIR Disposition: Admitted to [facility] - Attestation Statements Document Initiated by Mary: Yes Documenting Scribe: Jonas Allen Provider For Whom Mary is Documenting (Include Credential): Jose Vásquez MD Scribe Attestation: IJonas, scribed for Jose Vásquez MD on 11/05/18 at 1741. Scribe Documentation Reviewed: Yes Provider Attestation: The documentation as recorded by the Jonas edouard accurately reflects the service I personally performed and the decisions made by me, Jose Vásquez MD Status of Scribe Document: Viewed
[2018-11-05 13:19] LABS: ABS Basophils 0 10^3/ul (0-0.2); ABS Eosinophils 0.2 10^3/ul (0-0.6); ABS Lymphocytes 1.6 10^3/ul (1.0-4.8); ABS Monocytes 0.6 10^3/ul (0-0.8); ABS Neutrophils 5.1 10^3/ul (1.5-7.7); ABS Nucleated RBC 0 10^3/ul; Eosinophil % 2.4 %; Hematocrit 37 % (42-52); Hemoglobin 12.4 g/dl (14.0-18.0); Lymphocyte % 21.2 %; Mean Corpuscular HGB Conc 34 g/dl (31-36); Mean Corpuscular Hemoglobin 32 pg (27-31); Mean Corpuscular Volume 94 fL (80-94); Mean Platelet Volume 8.3 fL (7.4-10.4); Nucleated Red Blood Cells % 0; Platelet Count 176 10^3/ul (150-450); Red Cell Distribution Width 14 % (10.5-15); White Blood Count 7.6 10^3/ul (3.5-10.8)
[2018-11-05] MEDS ORDERED: Diazepam TAB(*) 5 MG PO PRN (13:29)
[2018-11-05] MEDS ORDERED: diPHENhydraMINE PO* 25 MG PO PRN (13:29)
[2018-11-05] MEDS ORDERED: NS 0.9% 1000 ML** 1,000 ML IV SCH ×2 (13:30→16:15)
[2018-11-05 13:31] LABS: INR 0.9 (0.77-1.02)
[2018-11-05 13:36] LABS: Albumin 4.1 g/dL (3.2-5.2); Albumin/Globulin Ratio 1.9 (1-3); BUN/Creatinine Ratio 11.8 (8-20); Calcium 9.4 mg/dL (8.6-10.3); EGFR African American 79.4 (>60); EGFR Non-African American 65.6 (>60); Globulin 2.2 g/dL (2-4); Potassium 4.7 mmol/L (3.5-5.0); Total Bilirubin 0.4 mg/dL (0.2-1.0); Total Protein 6.3 g/dL (6.4-8.9)
[2018-11-05] MEDS ORDERED: fentaNYL* 50 MCG/ML 2 ML VIAL (100 MCG VIAL) ONE (14:53)
[2018-11-05] MEDS ORDERED: Lidocaine 1% INJ* 10 MG/ML 30 ML SDV ONE (14:54)
[2018-11-05] MEDS ORDERED: Midazolam* 1 MG/ML 5 ML VIAL (5 MG) ONE (14:54)
[2018-11-05] MEDS ORDERED: VERAPAMIL 2.5 MG/ML 2 ML VIAL ** 5 mg/2 ml ONE (14:54)
[2018-11-05] MEDS ORDERED: nitroGLYCERIN DRIP* 25,000 MCG/250 ML BTL ONE (14:54)
[2018-11-05] MEDS ORDERED: Heparin(*) 1000 UNIT/ML 10 ML VIAL CATH LAB IV ONE (14:54)
[2018-11-05] MEDS ORDERED: Iohexol 350 (CONTRAST) 200 ML MDV IV ONE ×2 (14:55→14:56)
[2018-11-05] MEDS ORDERED: Heparin 2 UNITS/ML IVPREMIX* 3,000 UNIT/1,500 ML BAG IV ONE (14:56)
[2018-11-05 15:31] LABS: Activated Partial Thrombo Time 32.4 seconds (26.0-36.3)
--- NOTE | 2018-11-05 16:11 | CONS ---
CC: Dr. Madhav Callaway; Dr. Debra Domínguez * CARDIOLOGY CONSULTATION/ADMISSION HISTORY AND PHYSICAL: DATE OF CONSULT/ADMISSION: 11/05/18 INDICATION FOR CONSULTATION: Coronary artery disease, acute coronary syndrome. HISTORY OF PRESENT ILLNESS: The patient is a 73-year-old gentleman with a history of known coronary artery disease. He had 2 stents placed to his LAD back in 2000. The patient was admitted to the hospital here in August of 2018 with chest pain. His stress test at that time showed a large infarct to his anterior wall with ruben- infarct ischemia, not significantly different from previous stress test. The patient was visiting out in [place], [place], last week when he started developing chest pain. He described it as a pain across his chest into his shoulders. He called our office and he was instructed to go to the emergency room. In the emergency room, the patient had mildly elevated troponin level. The patient was given nitroglycerin and asked to follow up with Cardiology here back in [place]. The patient was seen on 11/01/18 by Marta Chapa , our nurse practitioner. At that time, he was explaining that he was having episodes of chest pain. They were all with exertion. They were kind of atypical in their presentation. The patient was to undergo a stress test today. The patient underwent a stress test with Dr. Domínguez today. During the procedure, he had profound chest pain, he had a drop in his blood pressure, and he had ST segment depression. The patient received a couple of nitroglycerin and was transported over to the emergency room. Here in the emergency room, the patient is pain free. PAST MEDICAL HISTORY: Significant for coronary artery disease, diabetes, hypertension, sleep apnea, depression. PAST SURGICAL HISTORY: Proton beam prostate cancer treatment in 2003, appendectomy in the past, stents to his LAD in 2000. OUTPATIENT MEDICATIONS: 1. Metoprolol ER 50 mg tablets one-half tab daily. 2. Zestril 40 mg a day. 3. Aspirin 81 mg a day. 4. Crestor 40 mg a day. 5. Glucophage 500 mg 3 times a day. 6. Flomax 0.4 mg daily. 7. CPAP machine. 8. Claritin 10 mg as needed. 9. Methylphenidate ER 40 mg 2 tablets in the morning. 10. Flonase Allergy Relief 1 spray to each nostril daily. 11. Fexofenadine 180 mg a day. 12. Nitroglycerin p.r.n. 13. Isosorbide mononitrate 30 mg a day. ALLERGIES: Seasonal allergies. No medical allergies. FAMILY HISTORY: Father had a history of abdominal aortic aneurysm repair and carotid endarterectomy. SOCIAL HISTORY: The patient is , but actually he is recently . His in August. Rare alcohol use. Former smoker, quit many years ago. Does not get any regular exercise. REVIEW OF SYSTEMS: Positive for lethargy. Positive for weight gain because of lethargy. Negative for changes in bowel or bladder habits. Negative for fevers or chills. No other positive in the 12-point review. PHYSICAL EXAM: Height is 5 feet 9 inches, weight 230 pounds, temperature 96, heart rate 67, blood pressure 109/65, respiratory rate is 16, oxygen saturation 96% on room air. Sclerae anicteric. Oropharynx is pink without erythema. Carotids are 2+ without bruits. JVD is normal. Thyroid is normal. Cardiac Exam: S1, S2 without any murmurs, rubs, or gallops. Lungs are clear to auscultation. Extremities show no edema. He has 2+ pulses throughout. The patient is awake, alert, and oriented. He moves all 4 extremities equally. DIAGNOSTIC STUDIES/LAB DATA: White count 7.6, hemoglobin 12, hematocrit 37, platelet count 176. Chemistry is within normal limits. BUN 13, creatinine 1.1. AST and ALT are normal. BNP 151. Troponin is 0. EKG demonstrates normal sinus rhythm with old anterior wall myocardial infarction. IMPRESSION AND PLAN: This is a 73-year-old gentleman with a history of coronary artery disease, history of an anterior wall myocardial infarction, who came to the emergency room after having a stress test at our office with Dr. Domínguez that was very concerning for unstable angina. The patient had chest pain with exertion. He also had [address] segment depression and hypotension with his stress test. The patient was transferred to the emergency room. The patient is currently stable. The patient will undergo a cardiac catheterization today. The risks and benefits of this were described in great detail and the patient is willing to proceed. The patient is already on an aspirin a day. Further recommendations pending the results of his catheterization. [id number]/[facility] #: [id number] [facility]PITALSandro
[2018-11-05] MEDS ORDERED: Acetaminophen TAB* 325 MG PO PRN (16:12)
[2018-11-05] MEDS ORDERED: Nitroglycerin TAB 0.4 MG* 0.4 MG TAB SL PRN (16:12)
[2018-11-05] MEDS ORDERED: Heparin DRIP 25,000 UNITS(*) 25,000 UNITS/500 ML BAG IV SCH (16:30)
[2018-11-05 17:26] LABS: ABS Basophils 0 10^3/ul (0-0.2); ABS Eosinophils 0.2 10^3/ul (0-0.6); ABS Lymphocytes 1.9 10^3/ul (1.0-4.8); ABS Monocytes 0.6 10^3/ul (0-0.8); ABS Neutrophils 5.1 10^3/ul (1.5-7.7); ABS Nucleated RBC 0 10^3/ul; Eosinophil % 2.5 %; Hematocrit 36 % (42-52); Hemoglobin 12.2 g/dl (14.0-18.0); Lymphocyte % 24.6 %; Mean Corpuscular HGB Conc 34 g/dl (31-36); Mean Corpuscular Hemoglobin 32 pg (27-31); Mean Corpuscular Volume 93 fL (80-94); Mean Platelet Volume 8.5 fL (7.4-10.4); Nucleated Red Blood Cells % 0.1; Platelet Count 168 10^3/ul (150-450); Red Blood Count 3.85 10^6/ul (4.00-5.40); Red Cell Distribution Width 14 % (10.5-15); White Blood Count 7.8 10^3/ul (3.5-10.8)
[2018-11-05 17:51] LABS: EGFR African American 87.6 (>60); EGFR Non-African American 72.4 (>60)
[2018-11-05] MEDS ORDERED: Heparin VIAL(*) 5000 UNITS/ML VIAL (FIVE THOUSAND) ONE (18:15)
[2018-11-05] MEDS ORDERED: Heparin DRIP 25,000 UNITS(*) 25,000 UNITS/500 ML BAG ONE (18:16)
[2018-11-05] MEDS ORDERED: Heparin VIAL(*) 5000 UNITS/ML VIAL (FIVE THOUSAND) IV PRN (18:30)
[2018-11-05] MEDS ORDERED: NS 0.9% 1000 ML** 1,000 ML IV PRN (19:00)
--- NOTE | 2018-11-06 00:32 | CATH ---
CC: Dr. Madhav Callaway; Dr. Debra Domínguez * CARDIAC CATHETERIZATION REPORT: DATE OF SERVICE: 11/05/18 - ROOM #[id number]-04 PROCEDURE: Cardiac catheterization including coronary angiography, left heart catheterization, left ventriculogram. INDICATION: Acute coronary syndrome, coronary artery disease. The patient is a 73-year-old gentleman with a history of coronary artery disease , who was admitted to the hospital after a markedly abnormal stress test. Cardiac catheterization was recommended. DESCRIPTION OF PROCEDURE: The patient was brought to the cardiac catheterization lab in a fasting state. Informed consent had been obtained prior to the procedure. All labs had been reviewed. The patient was placed supine on the catheterization table. His right radial area was prepped and draped in the usual fashion. 1% lidocaine was used for local anesthesia. The radial artery was entered via Seldinger technique and a guidewire was placed. Over the guidewire, a 6-Macanese hydrophilic sheath was placed. Heparin, verapamil, and nitroglycerin was infused through the sheath itself. The patient underwent cardiac catheterization using a 6- Macanese TIG catheter, a 6- Macanese AR1 catheter, and a 6-Macanese pigtail catheter. At the end of the procedure all sheaths and catheters were removed. The patient tolerated the procedure well with no complications. A total of 100 mL of Omnipaque dye was used. A total of 4.6 minutes of fluoro time was used. FINDINGS: HEMODYNAMICS: Central aortic blood pressure 99/50 with an end-diastolic pressure of 73. Left ventricular pressure 102/10 with an end-diastolic pressure of 20. LEFT VENTRICULOGRAM: Left ventricle was normal in size. Overall systolic function in the left ventricle is low normal or mildly reduced. Estimated ejection fraction 50%. There is mild anterior wall hypokinesis. There is no mitral regurgitation. Aortic valve and ascending aorta are normal. CORONARY ARTERIES: 1. Left main artery: The left main was normal in size. It bifurcated into the LAD and circumflex. The distal left main had a critical stenosis of at least 95%. There is [id number] calcification of the distal left main artery. 2. Left anterior descending artery: LAD was normal in size. It gave off two diagonal vessels. The ostium of the LAD had a critical 90% stenosis with heavy calcification. The remainder of the LAD has mild disease. The stent to the mid LAD is open and patent. The first and second diagonals are without disease. 3. Left circumflex artery: The left circumflex artery is normal in size. It has a critical 99% stenosis to the ostium of the left circumflex artery. The circumflex artery gives off a branching obtuse marginal. The ostium of the branching obtuse marginal has a 50% stenosis. 4. Right coronary artery: The RCA is a large dominant vessel, gave off the PDA. There is a mid 50% stenosis of the right coronary artery. The remainder of the vessels are without disease. IMPRESSION: 1. Low normal to mildly reduced LV systolic function. Ejection fraction of 50 % with anterior wall hypokinesis. 2. Critical stenosis to the distal left main, proximal and ostial LAD and ostial left circumflex artery each with 90% to 95% stenosis. 3. 50% stenosis to the mid right coronary artery. 4. No significant disease in the distal LAD, diagonal vessels, or obtuse marginal branches. RECOMMENDATION: The patient will be transferred to [facility] for consideration of urgent coronary bypass surgery. The patient will likely get a bypass to his LAD, diagonal vessel, 2 obtuse marginals, and the right coronary artery. [id number]/[facility] #: [id number] MTDD
--- NOTE | 2018-11-06 00:32 | TRS ---
TRANSFER SUMMARY: DATE OF ADMISSION: 11/05/18 DATE OF TRANSFER: 11/05/18. Transfer to [facility] under the care of Dr. Otto Foster INDICATION FOR TRANSFER: Coronary artery disease, coronary bypass surgery. Please see my admission history and physical for details of patient's presentation. The patient is a 73-year-old gentleman with a history of coronary artery disease , history of stenting to his LAD in 2000. The patient was having crescendo angina for the past week or so. The patient underwent a stress test today with Dr. Domínguez, which showed severe ST-segment depression and hypotension with exercise. The patient was transferred to the emergency room and ultimately underwent cardiac catheterization. His cardiac catheterization showed critical stenosis to his distal left main LAD and left circumflex artery. The patient is being transferred to [facility] under the care of Dr. Otto Foster for consideration for coronary bypass surgery. DISCHARGE MEDICATIONS: 1. Lisinopril 40 mg a day. 2. Wellbutrin 300 mg a day. 3. Flomax 0.4 mg a day. 4. Metoprolol succinate 25 mg a day. 5. Ritalin 40 mg a day. 6. Crestor 40 mg a day. 7. Glucophage 1000 mg at night and 500 mg in the morning, this is being held after his cardiac catheterization. 8. Niaspan ER 1000 mg a day. 9. Aspirin 81 mg a day. 10. Concerta 36 mg a day. 11. Multiple eye drops. 12. Heparin drip. 13. Nitroglycerin p.r.n. ALLERGIES: No known drug allergies. PHYSICAL EXAMINATION: Vital signs are stable. Carotids are 2+ without bruits. Cardiac Exam: S1, S2 without any murmurs, rubs, or gallops. Lungs are clear to auscultation. Extremities show no edema. DIAGNOSTIC STUDIES/LAB DATA: CBC within normal limits. Chemistries within normal limits. DISPOSITION: The patient is transferred to Dr. Otto Foster at [facility] for consideration of bypass surgery. [id number]/[facility] #: [id number] [facility]
[2018-11-06 02:38] VITALS: BP 97/47
[2018-11-06] MEDS ORDERED: Lisinopril TAB* 10 MG PO SCH (09:00)
[2018-11-06] MEDS ORDERED: buPROPion SR TAB.SR* 150 MG PO SCH (09:00)
[2018-11-06] MEDS ORDERED: Metoprolol Succinate XL TAB* 25 MG PO SCH (09:00)
[2018-11-06] MEDS ORDERED: Atorvastatin* 80 MG TAB PO SCH (09:00)
[2018-11-06] MEDS ORDERED: Aspirin EC TAB* 81 MG TAB.EC PO SCH (09:00)
== END 2018-11-06 03:00 | disposition short-term general hospital (02) ==
LOC: ED 12:46 → CHICATH 15:26 → ICU 18:10
PROVIDERS: ADMIT Specialist; ATTEND Specialist
DX: I25.10 Atherosclerotic heart disease of native coronary artery without angina pectoris (principal); R07.9 Chest pain, unspecified; R06.02 Shortness of breath; E11.9 Type 2 diabetes mellitus without complications; I20.9 Angina pectoris, unspecified; I10 Essential (primary) hypertension; I25.2 Old myocardial infarction; N40.0 Benign prostatic hyperplasia without lower urinary tract symptoms; Z85.46 Personal history of malignant neoplasm of prostate; Z87.891 Personal history of nicotine dependence
CPT/HCPCS: 36415; 71045; 80053; 82565; 83605; 83880; 84484; 84520; 85025; 85610; 85730; 93005; 93458; 96372; 96374; 96375; 99156; 99157; 99284; C1769; C1887; G0378; J1644; J2250; J3010